=== PATIENT | male | born 1940 | race Caucasian/White ===

== ENCOUNTER 2016-07-27 10:44 | Outpatient (CLI) | payer MEDICARE | END 2016-07-27 10:45 | LOC: LABLEX 10:44 | PROVIDERS: ATTEND Family Medicine | DX: R19.7 Diarrhea, unspecified (principal) | CPT/HCPCS: 83630; 87015; 87045; 87046; 87324; 87328; 87329; 87449; 87899 ==

== ENCOUNTER 2016-08-02 22:11 | Emergency (ER) | payer MEDICARE ==
--- NOTE | 2016-08-03 06:54 | RAD ---
CHEST TWO VIEWS 08/02/2016 Comparison is made with the prior two chest exams of 10/31/2015 and 01/04/2013. Mild cardiomegaly is no different than before. The cardiac pacer remains in place. There are no cl ear congestive changes today. The lungs are hyperexpanded with flattening of the diaphragm. There is chronic fibrotic change throughout the lungs bilaterally. It has gotten slightly worse over the years. There are no effusions. The fibrosis would make it difficult to detect a subtle acute infil trate, but as best as I can tell, the current findings are probably all chronic. The mediastinum shows no widening or shift. The trachea is midline. The bony structures showed no gross fracture. IMPRESSION: Chronic obstructive pulmonary disease with chronic fibrotic changes, particularly in the lung bases. No definite acute findings. POS: HOME
--- NOTE | 2016-08-03 06:59 | RAD ---
RIGHT SHOULDER 3 VIEWS: Date: 08/02/16 FINDINGS: No fracture or dislocation appreciated. AC joint is not widened. The visible adjacent ribs appeared intact. The scapula appears intact. IMPRESSION: No acute findings. POS: HOME
== END 2016-08-02 23:08 | disposition home or self-care (01) ==
LOC: BURERS 22:11
DX: S43.401A Unspecified sprain of right shoulder joint, initial encounter (principal); I10 Essential (primary) hypertension; J44.9 Chronic obstructive pulmonary disease, unspecified; F17.210 Nicotine dependence, cigarettes, uncomplicated; W18.30XA Fall on same level, unspecified, initial encounter
CPT/HCPCS: 71020; 96372; J2270

== ENCOUNTER 2016-08-04 11:43 | Outpatient (CLI) | payer MEDICARE ==
[2016-08-04 16:40] LABS: #Basophils 0.2 thou/uL (0.0-0.2); #Eosinphils 0.5 thou/uL (0.0-0.7); #Monocytes 0.6 thou/uL (0.11-0.59); #Neutrophils 7.9 thou/uL (1.40-6.50); %Eosinophils 4.4 % (0.0-10.0); %Monocytes 5.1 % (0.0-10.0); Hematocrit 47.2 % (42.0-52.0); Mean Platelet Volume 7.2 fL (7.4-10.4); Red Blood Cell (RBC) Count 4.82 mill/uL (4.70-6.10); White Blood Cell (WBC) Count 11.3 thou/uL (4.8-10.8)
[2016-08-04 16:44] LABS: ALT (SGPT) 7 U/L (0-55); AST (SGOT) 16 U/L (5-34); Alkaline Phosphatase 73 U/L (40-150); Anion Gap 16 mmol/L (10-20); BUN (Urea Nitrogen) 34 mg/dL (8.4-25.7); Bilirubin, Total 0.4 mg/dL (0.2-1.2); Calc. Creatinine Clearance 0 mL/min (70-130); Calcium 8.7 mg/dL (7.8-10.44); Carbon Dioxide 27 mmol/L (23-31); Chloride 106 mmol/L (98-107); Estimated GFR-MDRD 53; LDL Cholesterol, Calculated 130 mg/dL
== END 2016-08-04 11:44 | disposition home or self-care (01) ==
LOC: LABLEX 11:43
PROVIDERS: ATTEND Family Medicine
DX: E78.5 Hyperlipidemia, unspecified (principal); E78.1 Pure hyperglyceridemia; I10 Essential (primary) hypertension
CPT/HCPCS: 80053; 80061; 84443; 85025

== ENCOUNTER 2016-12-23 09:00 | Outpatient (CLI) | payer MEDICARE ==
--- NOTE | 2016-12-23 12:24 | CT ---
CT OF THE BRAIN WITHOUT CONTRAST: DATE: 12/23/16. COMPARISON: Comparison is made with a 10/31/15 study. HISTORY: The patient has had a prior occipital craniectomy related to surgery for an Arnold-Chiari malformati on. Today's exam shows mild increase in ventricular size compared to normal, but absolutely unchanged fr om the 2016 study. There is no ventricular shift. No intracranial bleeding or mass was seen. Ther e were a few patchy areas of hypolucency consistent with chronic microvascular ischemia. On the margot or study, some subtle low-density areas in the left parietal lobe were noted. These are still prese nt and little different. The visible paranasal sinuses and mastoid air cells are clear. Overall, t here has been no significant interval change. IMPRESSION: Chronic changes as noted, but no acute intracranial findings. While the ventricles are a little gen erous in size, they have not changed at all in the interval. POS: SUJATHA
== END 2016-12-23 09:01 | disposition home or self-care (01) ==
LOC: BURCT 09:00
PROVIDERS: ATTEND Family Medicine
DX: R51 Headache (principal); Z86.69 Personal history of other diseases of the nervous system and sense organs; Z98.890 Other specified postprocedural states
CPT/HCPCS: 70450

== ENCOUNTER 2017-03-04 05:24 | Emergency (ER) | payer MEDICARE ==
[2017-03-04 05:47] LABS: Bilirubin Negative (Negative); Blood, Urine Negative (Negative); Clarity Clear (Clear); Glucose, Urine (Dipstick) Negative (Negative); Leukocyte Negative (Negative); Nitrite Negative (Negative); Protein, Urine (Dipstick) Negative (Neg-Trace); Urobilinogen 0.2 mg/dL (0.2-1.0)
[2017-03-04 05:49] LABS: #Basophils 0.1 thou/uL (0.0-0.2); #Eosinphils 0.6 thou/uL (0.0-0.7); #Lymphocytes 2.6 thou/uL (1.20-3.40); #Monocytes 0.8 thou/uL (0.11-0.59); #Neutrophils 9.5 thou/uL (1.40-6.50); %Eosinophils 4.1 % (0.0-10.0); %Neutrophils 69.9 % (42.0-75.0); Hemoglobin 15.7 g/dL (14.0-18.0); Mean Corpuscular HGB CONC 33.4 g/dL (32.0-36.0); Mean Corpuscular Hemoglobin 32.3 pg (27.0-31.0); Mean Corpuscular Volume 96.7 fl (80.0-94.0); Mean Platelet Volume 7.2 fL (7.4-10.4); Platelet Count 206 thou/uL (130-400); RBC Distribution Width 12.3 % (11.5-14.5); Red Blood Cell (RBC) Count 4.84 mill/uL (4.70-6.10); White Blood Cell (WBC) Count 13.6 thou/uL (4.8-10.8)
[2017-03-04 05:52] LABS: Specific Gravity, Urine 1.008 (1.002-1.036)
[2017-03-04 06:02] LABS: ALT (SGPT) 7 U/L (8-55); AST (SGOT) 16 U/L (5-34); Albumin 3.9 g/dL (3.4-4.8); Alcohol Less than 10 mg/dL (Less than 10); Alkaline Phosphatase 84 U/L (40-150); Anion Gap 13 mmol/L (10-20); BUN (Urea Nitrogen) 25 mg/dL (8.4-25.7); Bilirubin, Total 0.7 mg/dL (0.2-1.2); Calc. Creatinine Clearance 0 mL/min (70-130); Calcium 9.3 mg/dL (7.8-10.44); Carbon Dioxide 29 mmol/L (23-31); Chloride 105 mmol/L (98-107); Estimated GFR-MDRD 70; Globulin 3.6 g/dL (2.4-3.5); Glucose 91 mg/dL (83-110); Potassium 4.7 mmol/L (3.5-5.1); Protein, Total 7.5 g/dL (5.8-8.1); Sodium 142 mmol/L (136-145)
[2017-03-04 06:03] LABS: CKMB 1.9 ng/mL (0-6.6); Troponin I Less than 0.010 ng/mL (< 0.028)
--- NOTE | 2017-03-04 07:07 | RAD ---
PORTABLE CHEST: Date: 03/04/17 An AP portable film at 0538 hours is compared with the 08/02/16 study. FINDINGS: Cardiac pacer is present as usual. The heart is minimally enlarged and unchanged in size. There is n o definite vascular congestion or pleural effusion. There are some fibrotic changes throughout the l ungs that appear chronic. The mediastinum shows no widening or shift. No fractures were seen, but se nsitivity to such would be very low on this study. IMPRESSION: Chronic changes, but no acute findings. POS: HOME
--- NOTE | 2017-03-04 07:08 | RAD ---
RIGHT SHOULDER 3 VIEWS: Date: 03/04/17 Comparison made with the 08/02/16 study. FINDINGS: No overt fracture, dislocation, or AC joint widening was seen. A few flecks of bone at the tip of th e acromion were present previously and are not new. There is a slight lucency at the end of the acro mion on some of the views, but it does not seem sharp enough to be diagnostic of a fracture. I would tend to discount the finding unless there was point tenderness here. Some irregularity along the in ferior lip of the glenoid is chronic and was present previously as well. IMPRESSION: No definite acute findings. See discussion above. CODE T. POS: HOME
--- NOTE | 2017-03-04 07:11 | CT ---
PRELIMINARY REPORT/[facility]/EMERGENCY AFTER HOURS PROCEDURE: EXAM: CT Head Without Intravenous Contrast CLINICAL HISTORY: 76 years old, male; Injury or trauma; Fall; Patient HX: Syncope, S/P fall, hit rt. Side of face TECHNIQUE: Axial computed tomography images of the head/brain without intravenous contrast. All CT scans at [facility] facility use one or more dose reduction techniques, viz.: automated exposure control; ma/kV adjust ment per patient size (including targeted exams where dose is matched to indication; i.e. head); or iterative reconstruction technique. COMPARISON: No relevant prior studies available. FINDINGS: Brain: There is mild diffuse heterogeneity of the white matter attenuation, consistent with chronic white matter ischemic changes. No hemorrhage. Ventricles: Unremarkable. No ventriculomegaly. Bones/joints: Craniectomy changes seen in the occipital region No acute fracture. Soft tissues: Unremarkable. Sinuses: Mild mucosal thickening of the maxillary sinus. Mastoid air cells: Unremarkable as visualized. No mastoid effusion. IMPRESSION: No acute findings. Thank you for allowing us to participate in the care of your patient. Dictated and Authenticated by: Stevan Tapia MD 03/04/2017 6:23 AM Central Time ([place] \T\ [place]) FINAL REPORT CT OF THE BRAIN WITHOUT CONTRAST: Date: 03/04/17 Comparison is made with a 12/23/16 study. FINDINGS: No intracranial bleeding or extra-axial hematoma seen. The ventricular sizes are normal and unchange d since the prior scan. Patchy hypolucency in the deep white matter is typical of chronic ischemic c hange. There were no findings strongly suggestive of acute stroke. No mass or edema was seen. The calvarium appears intact with no sign of fracture. The sphenoid sinus and mastoid air cells are clear. There is a new finding, however, in that there is mucosal thickening and opacity in the left maxillary sinus consistent with sinusitis. This is a new finding since November. No fractures were visib le in the portions of the face scanned on this study, which included the zygomatic arches and nasal bones. IMPRESSION: 1. Chronic ischemic changes that are little different than the November study. No acute intracranial fi ndings. 2. Changes consistent with developing left maxillary sinusitis. REPORT IN AGREEMENT WITH PRELIMINARY READING BY JACLYN. POS: HOME
== END 2017-03-04 07:23 | disposition home or self-care (01) ==
LOC: BURERS 05:24
DX: R55 Syncope and collapse (principal); I10 Essential (primary) hypertension; J44.9 Chronic obstructive pulmonary disease, unspecified; F17.210 Nicotine dependence, cigarettes, uncomplicated; Z79.899 Other long term (current) drug therapy
CPT/HCPCS: 70450; 71010; 80053; 80307; 81003; 82553; 84484; 85025; 93005

== ENCOUNTER 2017-05-18 12:11 | Outpatient (CLI) | payer MEDICARE ==
--- NOTE | 2017-05-18 20:15 | ULT ---
ABDOMINAL ULTRASOUND: 05/18/17 Ultrasonography of the abdomen was performed for evaluation of pain. The liver is about 15 cm in oblique sagittal dimension. It is not seen extremely well due to gas, but the visible areas appear normal. The pancreas was largely obscured by gas, but the visible areas als o appeared normal. The gallbladder contains no obvious stones or wall thickening. There is probably a trace of sludge pr esent. The common bile duct was a normal 5 mm in caliber. The spleen was normal in size. The aorta an d inferior vena cava are unremarkable. The right kidney was 11.6 cm long and appeared normal. The left kidney was 10.6 cm long and contains two 2 cm cysts. IMPRESSION: No acute abdominal findings. Trace of gallbladder sludge and two left renal cysts. POS: HOME
== END 2017-05-18 12:12 | disposition home or self-care (01) ==
LOC: BURULT 12:11
PROVIDERS: ATTEND Nurse Practitioner
DX: R10.13 Epigastric pain (principal)
CPT/HCPCS: 76700